=== PATIENT | male | born 2000 | race Caucasian/White ===

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

== ENCOUNTER 2021-12-08 20:49 | Emergency (ER) | payer BC ==
[~2021-12-08] VITALS: Ht 188 cm; Wt 72.7 kg
[~2021-12-08 20:49] MED LIST changes: +CEPHALEXIN500 M1 PO
[2021-12-08 23:03] VITALS: BP 123/71; PULSE 56; TEMP 98
== END 2021-12-08 23:03 | disposition home or self-care (01) ==
LOC: COL.ER 20:49
DX: S60.051A Contusion of right little finger without damage to nail, initial encounter (principal); F17.200 Nicotine dependence, unspecified, uncomplicated; Z28.310 Unvaccinated for COVID-19; W22.01XA Walked into wall, initial encounter